=== PATIENT | male | born 1955 | race Caucasian/White ===

== ENCOUNTER 2019-04-28 10:17 | Outpatient (CLI) | payer OTHER ==
[~2019-04-28 10:17] MED LIST: AMLO-150 PO; ARIP20TA5 PO; LAMO200T3 PO; LISI40TA PO
== END 2019-04-28 23:59 | disposition home or self-care (01) ==
LOC: CFH 10:17
PROVIDERS: ATTEND Internal Medicine Cardiovascular Disease
DX: I10 Essential (primary) hypertension (principal); E78.2 Mixed hyperlipidemia; I48.91 Unspecified atrial fibrillation; Z95.1 Presence of aortocoronary bypass graft
CPT/HCPCS: 71046

== ENCOUNTER 2019-05-16 14:20 | Outpatient (CLI) | payer OTHER | END 2019-05-16 23:59 | disposition home or self-care (01) | LOC: CARD 14:20 | PROVIDERS: ATTEND Internal Medicine | DX: R06.02 Shortness of breath (principal); I48.91 Unspecified atrial fibrillation; I11.0 Hypertensive heart disease with heart failure; I50.9 Heart failure, unspecified; G47.33 Obstructive sleep apnea (adult) (pediatric); Z87.891 Personal history of nicotine dependence; Z79.82 Long term (current) use of aspirin; Z79.899 Other long term (current) drug therapy; Z95.1 Presence of aortocoronary bypass graft | CPT/HCPCS: 94060; 94618; 94726; 94729 ==

== ENCOUNTER → 2019-06-14 | Outpatient (CLI) | payer OTHER ==
[~2019-06-14] MED LIST changes: +APIX5TAB PO; +ASPI-496 PO; +ATOR40TA78 PO; +DIPH25CA61 PO; +metoprolol PO
[2019-06-14 14:13] LABS: BASOPHILS # (AUTO) 0.06 x10^3/uL (0-0.1); BASOPHILS % (AUTO) 1 % (0-1); EOSINOPHILS # (AUTO) 0.34 x10^3/uL (0-0.4); EOSINOPHILS % (AUTO) 5 % (1-7); LYMPHOCYTES # (AUTO) 1.78 x10^3/uL (1-3.4); LYMPHOCYTES % (AUTO) 26 % (22-44); MD NO; MEAN CORPUSCULAR HEMOGLOBIN 23.7 pg (27.5-34.5); MEAN CORPUSCULAR HGB CONC 30.9 g/dL (33.2-36.2); MEAN CORPUSCULAR VOLUME 76.8 fL (81-97); MEAN PLATELET VOLUME 8.1 fL (7.4-10.4); MONOCYTES # (AUTO) 0.53 x10^3/uL (0.2-0.8); MONOCYTES % (AUTO) 8 % (2-9); NEUTROPHILS # (AUTO) 4.23 x10^3/uL (1.8-6.8); NEUTROPHILS % (AUTO) 61 % (42-75); PLATELET COUNT 382 x10^3/uL (130-400); RED BLOOD COUNT 4.55 x10^6/uL (4.38-5.82)
[2019-06-14 14:22] LABS: ALANINE AMINOTRANSFERASE 32 U/L (12-78); ALBUMIN 3.9 g/dL (3.4-5.0); ANION GAP 4 mmol/L (5-15); CALCIUM 8.7 mg/dL (8.5-10.1); CHLORIDE 109 mmol/L (98-107); CREATININE 0.98 mg/dL (0.7-1.3)
[2019-06-14 14:24] LABS: ALKALINE PHOSPHATASE 132 U/L (45-117); BILIRUBIN,TOTAL 0.5 mg/dL (0.2-1.0); TOTAL PROTEIN 6.9 g/dL (6.4-8.2)
== END | disposition home or self-care (01) ==
LOC: STAR 12:35
PROVIDERS: ATTEND Surgery
DX: Z01.818 Encounter for other preprocedural examination (principal); K43.2 Incisional hernia without obstruction or gangrene; Z88.2 Allergy status to sulfonamides; Z88.8 Allergy status to other drugs, medicaments and biological substances
CPT/HCPCS: 36415; 80053; 85025; 93005

== ENCOUNTER 2019-06-22 06:44 | Day surgery (SDC) | payer OTHER ==
[~2019-06-22] VITALS: Ht 170.2 cm; Wt 85.7 kg
[2019-06-22] MEDS ORDERED: LACTATED RINGERS 1,000 ML IV SCH (07:13)
[2019-06-22 07:15] VITALS: BP 123/69
[2019-06-22] MEDS ORDERED: BUPIVACAINE/PF 0.5% ONE (07:17)
[2019-06-22] MEDS ORDERED: EPINEPHRINE 1 MG/ML, 1ML ONE (07:18)
[2019-06-22] MEDS ORDERED: ACETAMINOPHEN 500 MG TABLET ONE (07:48)
[2019-06-22] MEDS ORDERED: SCOPOLAMINE PATCH, 1.5MG PATCH.TD72 TD ONE ×2 (07:48→08:00)
[2019-06-22] MEDS ORDERED: GABAPENTIN 300 MG CAPSULE ONE (07:48)
[2019-06-22] MEDS ORDERED: GABAPENTIN 300 MG CAPSULE PO ONE (08:00)
[2019-06-22] MEDS ORDERED: ACETAMINOPHEN 500 MG TABLET PO ONE (08:00)
[2019-06-22] MEDS ORDERED: MIDAZOLAM 1 MG/ML, 2ML ONE ×2 (08:30→14:41)
[2019-06-22] MEDS ORDERED: FENTANYL PF 250 MCG/5ML ONE (08:32)
[2019-06-22] MEDS ORDERED: DEXAMETHASONE 4 MG/ML, 1ML ONE ×2 (08:41)
[2019-06-22] MEDS ORDERED: CEFAZOLIN 1,000 MG ONE (08:41)
[2019-06-22] MEDS ORDERED: PROPOFOL 10 MG/ML, 20ML ONE (08:44)
[2019-06-22] MEDS ORDERED: SUCCINYLCHOLINE 20 MG/ML, 10ML ONE (08:44)
[2019-06-22] MEDS ORDERED: ROCURONIUM 10MG/ML,5ML ONE (08:44)
[2019-06-22] MEDS ORDERED: ONDANSETRON 2MG/ML, 2ML IV PRN (09:00)
[2019-06-22] MEDS ORDERED: MIDAZOLAM 1 MG/ML, 2ML IV PRN (09:00)
[2019-06-22] MEDS ORDERED: FENTANYL PF 100 MCG/2ML IV PRN (09:00)
[2019-06-22] MEDS ORDERED: HYDROmorphone 2 MG/ML, 1ML IVPush PRN (09:00)
[2019-06-22] MEDS ORDERED: OXYcodone 5 MG/5 ML ORAL.SOL UDC PO PRN ×2 (09:00→10:30)
[2019-06-22] MEDS ORDERED: ONDANSETRON ODT 8 MG PO PRN (09:00)
[2019-06-22] MEDS ORDERED: HALOPERIDOL 5 MG/ML IV PRN (09:00)
[2019-06-22] MEDS ORDERED: MEPERIDINE/PF 25MG/ML,1ML IVPush PRN (09:00)
[2019-06-22] MEDS ORDERED: hydrALAzine 20 MG/ML, 1ML IV PRN (09:00)
[2019-06-22] MEDS ORDERED: PROMETHAZINE 25 MG/ML, 1ML IV PRN (09:00)
[2019-06-22] MEDS ORDERED: EPHEDRINE 50 MG/ML, 1ML IVPush PRN (09:00)
[2019-06-22] MEDS ORDERED: DIAZEPAM 5 MG/ML, 2ML IVPush PRN (09:00)
[2019-06-22] MEDS ORDERED: LABETALOL 5MG/ML, 20ML IV PRN (09:00)
[2019-06-22] MEDS ORDERED: ALBUTEROL SULFATE 2.5 MG/3 ML NPPB PRN (09:00)
[2019-06-22] MEDS ORDERED: PROMETHAZINE 12.5 MG SUPP PR PRN (09:00)
[2019-06-22] MEDS ORDERED: EPHEDRINE 50 MG/ML, 1ML ONE (09:18)
[2019-06-22] MEDS ORDERED: ONDANSETRON 2MG/ML, 2ML ONE (09:53)
[2019-06-22] MEDS ORDERED: SUGAMMADEX 200 MG/2 ML IVPush ONE (09:53)
== END 2019-06-22 12:40 | disposition home or self-care (01) ==
LOC: OUT 06:44
PROVIDERS: ATTEND Surgery
DX: K43.2 Incisional hernia without obstruction or gangrene (principal); K66.0 Peritoneal adhesions (postprocedural) (postinfection); I10 Essential (primary) hypertension; E78.5 Hyperlipidemia, unspecified; I48.91 Unspecified atrial fibrillation; I25.10 Atherosclerotic heart disease of native coronary artery without angina pectoris; G47.33 Obstructive sleep apnea (adult) (pediatric); Z79.01 Long term (current) use of anticoagulants; Z79.82 Long term (current) use of aspirin; Z79.899 Other long term (current) drug therapy; Z87.891 Personal history of nicotine dependence; Z88.2 Allergy status to sulfonamides; Z88.8 Allergy status to other drugs, medicaments and biological substances; Z95.1 Presence of aortocoronary bypass graft; Z98.890 Other specified postprocedural states; Z82.49 Family history of ischemic heart disease and other diseases of the circulatory system; Z80.0 Family history of malignant neoplasm of digestive organs
CPT/HCPCS: 49654; C1781; J0171; J0330; J0690; J1100; J2250; J2405; J2704; J3010; J7120; S2900